=== PATIENT | male | born 1940 | race Caucasian/White ===

== ENCOUNTER → 2016-07-13 | Outpatient (CLI) | payer OTHER ==
[~2016-07-13] MED LIST: ASPCH81X PO; BUPRTAB51 PO; CARB1CAP11 PO; CHOL20009 PO; MULT-506 PO; OLAN10TA11 PO
[2016-07-13 12:53] LABS: BASO % 0.2 %; BASO ABS # 0.01 K/uL (0-0.2); COMPLETE YES; HEMATOCRIT 45.2 % (42-52); IG% 0.4 %; LYMPH ABS # 1.41 K/uL (1.2-3.4); MEAN CORPUSCULAR HEMOGLOBIN 32.6 pg (25-34); MEAN CORPUSCULAR HGB CONC 34.7 g/dl (32-36); MEAN PLATELET VOLUME 10.5 fL (7.4-10.4); MONO % 9.7 %; NEUT % 61.7 %; PLATELET COUNT 177 K/uL (130-400); RED BLOOD COUNT 4.81 M/uL (4.7-6.1); WHITE BLOOD COUNT 5.03 K/uL (4.8-10.8)
[2016-07-13 13:00] LABS: ALT/SGPT 33 U/L (12-78); BLOOD UREA NITROGEN 17 mg/dl (7-18); BUN/CREATININE RATIO 16.7 (10-20); CALCIUM 8.7 mg/dl (8.5-10.1); CARBON DIOXIDE 26 mmol/L (21-32); CHLORIDE 109 mmol/L (98-107); CHOLESTEROL 225 mg/dl (0-200); GLUCOSE 94 mg/dl (70-99); GLUCOSE,FASTING 94 mg/dl (70-99); POTASSIUM 3.8 mmol/L (3.5-5.1); SODIUM 142 mmol/L (136-145); TRIGLYCERIDES 141 mg/dl (0-150); VERY LOW DENSITY LIPOPROT CALC 28 mg/dl
[2016-07-13 13:05] LABS: AST/SGOT 15 U/L (15-37); CHOLESTEROL/HDL RATIO 4.4; HDL CHOLESTEROL 51 mg/dl; LDL CHOLESTEROL CALCULATED 146 mg/dl; PROSTATE SPECIFIC ANTIGEN 0.949 ng/ml (0.000-4.000)
[2016-07-13 13:57] LABS: ESTIMATED AVERAGE GLUCOSE 105 mg/dl; HA1C FLAG Normal (Normal)
--- NOTE | 2016-09-21 09:51 | CODING QUERY MEDICAL NECESSITY ---
CQSUPPORTING DIAGNOSIS NEEDED A supporting diagnosis is required for the test/procedure performed on this patient in order for us to be reimbursed by the patient's insurance. Please provide a supporting diagnosis for the following test/procedure listed below next to the test name along with your signature. *If there is no additional diagnosis for this patient that would support the following test/procedure please document that below next to the test/procedure. Test(s)/Procedure(s) that require a supporting diagnosis: DOS 07/13/16 GLYCATED HEMOGLOBIN TEST Provider Signature: Date: Thank you Susan [facility] Information Management Once completed, please kindly fax back to [phone] For questions please call [phone]
== END | disposition home or self-care (01) ==
LOC: C.LABMFLN 10:24
PROVIDERS: ATTEND Family Medicine
DX: F31.10 Bipolar disorder, current episode manic without psychotic features, unspecified (principal); E78.5 Hyperlipidemia, unspecified; Z12.5 Encounter for screening for malignant neoplasm of prostate; R73.03 Prediabetes

== ENCOUNTER → 2016-08-23 | Outpatient (CLI) | payer OTHER | END | disposition home or self-care (01) | LOC: C.PATHSPEC 13:02 | PROVIDERS: ATTEND Family Medicine | DX: L98.9 Disorder of the skin and subcutaneous tissue, unspecified (principal) ==

== ENCOUNTER → 2016-11-06 | Outpatient (CLI) | payer OTHER ==
[2016-11-06 15:22] LABS: CHOLESTEROL/HDL RATIO 3.1
== END | disposition home or self-care (01) ==
LOC: C.LABMFLN 10:39
PROVIDERS: ATTEND Family Medicine
DX: E78.5 Hyperlipidemia, unspecified (principal); E55.9 Vitamin D deficiency, unspecified

== ENCOUNTER 2019-01-03 06:45 | Inpatient (IN) ==
[2019-01-03] MEDS ORDERED: MIDAZOLAM HCL 1 MG/ML 2ML VIAL ONE (07:14)
[2019-01-03] MEDS ORDERED: NITROGLYCERIN/D5W 100MCG/ML 20ML SYR ONE (07:14)
[2019-01-03] MEDS ORDERED: NiCARDipine HCL INJ 2.5 MG/ML 10 ML AMP ONE (07:14)
[2019-01-03] MEDS ORDERED: HEPARIN (PORCINE) 1000 UNIT/ML 10 ML (CATH LAB USE ONLY) ONE ×2 (07:14→08:30)
[2019-01-03] MEDS ORDERED: fentaNYL citrate 100 MCG/2 ML VIAL ONE (07:14)
[2019-01-03] MEDS ORDERED: ASPIRIN 81 MG CHEW ONE (07:31)
--- NOTE | 2019-01-03 07:42 | History & Physical Bridge Note ---
Date of Service January 03, 2019 History & Physical Bridge Note I have examined the patient, reviewed the History & Physical and in the interval since the performance of the History & Physical I have noted the following changes of clinical significance: no changes noted
--- NOTE | 2019-01-03 07:42 | Pre Anesthesia Assessment ---
Date of Service January 03, 2019 Pre Sedation Assessment Vital Signs Temp Pulse Resp BP Pulse Ox 01/03/19 06:56 36.5 C 59 L 17 179/88 H 96 Cardiovascular + regular rate Respiratory normal respiratory effort, lungs clear to auscultation Pre-Sedation Airway Assessment Smoking Status: Never smoker Hx Sleep Apnea: No Short, Thick Neck: No Thyromental Distance: > or= 3.5 Finger Breadths Oral Cavity: + WNL Mallampati Class: III ASA: ASA3 NPO Status Date of Last Intake of Fluids: 01/02/19 Time of Last Intake of Fluids: 19:00 Date of Last Intake of Solid Food: 01/02/19 Time of Last Intake of Solid Foods: 19:00 Procedure Planning Contraindications for Sedation: none Current Medications Reviewed: Yes Notes The planned sedation has been discussed with the patient. Informed Consent was obtained. I have identified the patient, determined the appropriateness of sedation and have assessed the patient immediately prior to the procedure. All medicine(s) and interventions are by my order.
--- NOTE | 2019-01-03 08:31 | Cardiac Catheterization ---
[facility] Data: Bisque Placer Cardiac Status Clinical evaluation leading to the procedure CAD Presenation: No Sxs, No angina and Stable angina Anginal Classification: CCS III (dyspnea as anginal equivalent) Heart Failure: No Cardiogenic Shock within 24 Hours: No Cardiac Arrest within 24 Hours: No Imaging Studies Past 6 Months: No Standard Exercise Test: Yes - Negative Stress Echocardiogram: Yes - Positive and Risk/Extent of Ischemia (Intermediate) Stress Testing w/SPECT MPI: No Cardiac CTA: No Coronary Anatomy Dominant: Left Left Main (% Stenosis): Normal LAD (% Stenosis): Proximal (Diffuse moderate narrowing approx 50%) and Mid (98%) D1 (% Stenosis): Normal Circumflex (% Stenosis): Mid (20-30%) and Distal (sequential 30% stenoses) OM1 (% Stenosis): Normal OM2 (% Stenosis): Normal L PL1 (% Stenosis): Normal L PL2 (% Stenosis): Normal L PDA (% Stenosis): Normal RCA (% Stenosis): Normal Left Ventricular Angiography EF (%): n/a Diagnostic Physicians Name: Kemar Eddy MD Status: Elective Closure Device Percutaneous Entry Location: Radial Recommendations: PCI without planned CABG Cardiac Cath Procedure Full Procedure Date January 03, 2019 Pre-Procedure Diagnosis Pre-Procedure Diagnosis: Positive Stress Test AUC Score AUC Score: 8 Post-Procedure Diagnosis Post-Procedure Diagnosis: Severe CAD and Normal Intracardiac Pressures Procedure(s) Performed Procedure(s) Performed: Coronary Angiography and Left Heart Cath Car Pre Cooler Kemar Eddy MD Wigs Salesperson(s) [place] [place] Estimated Blood Loss Estimated Blood Loss: < 20 ml Medication(s) Medication(s): Fentanyl, Heparin, Lidocaine 1%, Nicardipine and Versed Summary of Findings Coronary angiography: 1. Left main coronary artery: Left main coronary artery is large caliber and long in duration. No significant CAD within the LMCA. 2. Left anterior descending: The LAD originates as a large caliber vessel but in the proximal portion becomes diffusely narrowed by approximately 50% on visual inspection. Mid LAD approximately 98% stenosis. MERLE 3 flow. Small D1. 3. Circumflex: The circumflex is large and dominant. Mid circumflex 20-30%. Distal circumflex sequential 30% stenotic lesions. Circumflex gives rise to high OM1, without significant CAD. Medium caliber OM 2 without significant CAD. Large OM3/PL branch. Small PL 2. PDA without significant CAD. 4. Right coronary artery: The RCA is small nondominant. No significant CAD within the RCA. Left heart catheterization: 1. Left ventriculography was not performed. 2. No significant aortic stenosis. Peak to peak gradient across aortic valve was approximately 0mmHg. 3. Normal LVEDP; 12mmHg. Sedation start time: 7:49 a.m. Sedation end time: 8:11 a.m. Impression: 1. Severe CAD involving mid LAD. 2. Suspected at least moderate disease involving proximal LAD with smooth narrowing diffusely. 3. Otherwise, mild nonobstructive CAD involving dominant circumflex. 4. No aortic stenosis. 5. Normal LVEDP. Plan: 1. Dr. Blancas of interventional Cardiology reviewed images and plans to further investigate proximal LAD (IVUS) with potential PCI of mid LAD. 2. Optimize medical therapy. Hemodynamics Rest Ao:: 148/60 Final Ao: 152/64 LV: 151/0/12 Recommendations Recommendations: PCI without planned CABG Specimens Specimens: None Radiation Exposure (mGy) 777 mGy. FLuoro time 3.3 min. Contrast (mls) 90 ml Procedural Complication(s) None Disposition remains in microbiology lab manager for PCI
--- NOTE | 2019-01-03 08:59 | Post Anesthesia Assessment ---
Date of Service January 03, 2019 Post Sedation Assessment Vital Signs Temp Pulse Resp BP Pulse Ox 01/03/19 06:56 36.5 C 59 L 17 179/88 H 96 Recovery Score Activity: Moves 4 extremities Respiration: Deep Breath/Cough Circulation: +/-20% PreAnes Value Consciousness: Fully Awake Oxygen Saturation: O2 needed for >90% Discharge Sedation Level of Care: Fast Track Phase II Post Sedation Plan On clinical assessment, the patient appears to have tolerated the sedation without complications. Patient is recovering as anticipated. Patient will continue to be monitored by nursing and may be discharged when sedation discharge criteria are met per below protocol. Upon Completions of procedure and additional 15 minutes continue every 5 minute vital signs and the P.A.R. score; then discharge to a Phase I or Fast Track to Phase II per the following guidelines: * Discharge Patient to appropriate Phase II area if PAR is 8 or greater or return to pre- procedure baseline. The post - procedure orders will be as directed. * If PAR score is less than 8 or not return to pre-procedure baseline then patient will follow Phase I monitoring till PAR is reached for Phase II. The Phase I may be done in procedure room or may call to secure a Phase I area. * If naloxone or flumazenil are used for reversal, hold in Phase I for continued monitoring from when last reversal dose was given for a minimum of 60 minutes or longer pending the nurse and/or physician discretion of patient condition before discharge to Phase II. Please call the Sedation Physician to re-evaluate and complete post-note for discharge to Phase II area. Do NOT discharge from procedure sedation or Phase 1 until post- sedation evaluation note is complete by procedure /sedation MD Sedation Discharge Instructions to be given to the patient at discharge to home.
[2019-01-03] MEDS ORDERED: ACETAMINOPHEN 325 MG TAB PO PRN (09:04)
[2019-01-03] MEDS ORDERED: ONDANSETRON INJ 2 MG/ML 2 ML VIAL IV PRN (09:04)
--- NOTE | 2019-01-03 09:04 | Cardiac Catheterization ---
[facility] Data: Geriatric Case Manager Cardiac Status Clinical evaluation leading to the procedure CAD Presenation: Positive Stress Test Anginal Classification: CCS III Heart Failure: No Cardiogenic Shock within 24 Hours: No Cardiac Arrest within 24 Hours: No Imaging Studies Past 6 Months: Yes Stress Studies Past 6 Months: Yes Stress Echocardiogram: Yes - Positive and Risk/Extent of Ischemia Diagnostic Physicians Name: Polo Blancas MD Status: Elective Closure Device Percutaneous Entry Location: Radial Closure Device: Radial Band Recommendations: PCI without planned CABG PCI Indication: + Stress Test Lesion Segment Name: mid Lad Culprit Artery: Yes Stenosis Prior to Rx (%): 90 Chronic Total Occlusion: No IVUS: No FFR: No Pre-Procedure MERLE Flow: 3 Previously Treated Lesion: No Lesion Complexity: Non-High/Non-C Lesion Length (mm): 20 Thrombus Present: No Bifurcation Lesion: Yes Guidewire Across Lesion: Stenosis Post-Procedure (%): 0 Post-Procedure MERLE Flow: 3 Devices(s) Deployed: Yes Yes Intraprocedure Events Significant Disection: No Perforation: No Cardiac Cath Procedure Full Procedure Date January 03, 2019 Pre-Procedure Diagnosis Pre-Procedure Diagnosis: Positive Stress Test AUC Score AUC Score: 8 Post-Procedure Diagnosis Post-Procedure Diagnosis: Severe CAD and Successful PCI Procedure(s) Performed Procedure(s) Performed: Coronary Angiography and Drug Eluting Stent Analytical Lab Technician Polo Blancas MD Event Mgr(s) [place]oo [place] Estimated Blood Loss Estimated Blood Loss: < 20 ml Medication(s) Medication(s): Clopidogrel, Fentanyl, Heparin, Nicardipine, Nitroglycerin and Versed Summary of Findings Indication: Positive stress test Access: 6 Fr right radial artery Catheters: EBU 3.75 guide Findings: For full details of patient's coronary angiography please cath report dictated by Dr. Eddy. Briefly, patient found to have severe single vessel disease with a 90 % stenosis involving the mid LAD. Decision to proceed with PCI. -- PCI -- Antithrombotic therapy: Heparin, clopidogrel Procedure: Left main cannulated with EBU 3.75 guide Customs Entry Writer 50 wire passed across lesion into distal vessel IVUS used to assess extent of disease in proximal LAD, degree of calcification. Diffuse disease extending from mid segment back to first septal with mild calcification. Mid LAD lesion predilated with 2.5 compliant balloon Dilated lesion stented with 2.75 x 26 mm [place] drug-eluting stent Stent post-dilated with 3.0 noncompliant balloon IC vasodilators administered for spasm Post procedure MERLE 3 flow, stent well expanded with minimal residual stenosis and no apparent cardiac complications. Arterial Closure: TR band Summary: 1. Successful PCI of mid LAD with single drug-eluting stent (2.75 x 26 mm Melecio; postdilated with 3.0 NC). Recommendations: To PCU for continued monitoring Loaded with clopidogrel 600 mg in clinical laboratory medical director Continue dual-antiplatelet therapy for at least 6 months Continue statin, and ASCVD risk factor modification Consult cardiac Rehab Hemodynamics Rest Ao:: 137/56/88 Final Ao: 141/59/91 LV: -- Recommendations Recommendations: PCI without planned CABG Specimens Specimens: None Radiation Exposure (mGy) -- Contrast (mls) -- Fluids (cc crystalloids) Fluids (cc crystalloids): -- Drains Drains: None Anesthesia moderate Procedural Complication(s) None Disposition PCU
[2019-01-03] MEDS: CLOPIDOGREL BISULFATE 300 MG TAB ONE ×2 (09:28→09:31)
[2019-01-03] MEDS: SODIUM CHLORIDE 0.9% 500 ML IV SCH ×3 (09:37→20:07)
[2019-01-03] MEDS: CARBAMAZEPINE 200 MG TABCR PO SCH (20:24)
[2019-01-03] MEDS ORDERED: OLANZapine 10 MG TAB PO SCH (21:00)
[2019-01-04] MEDS: CARBAMAZEPINE 200 MG TABCR PO SCH (07:53)
[2019-01-04] MEDS ORDERED: BuPROPion XL 300 MG TABCR PO SCH (09:00)
[2019-01-04] MEDS ORDERED: OLANZapine 10 MG TAB PO SCH (09:00)
[2019-01-04] MEDS ORDERED: ASPIRIN 81 MG ECTAB PO SCH (09:00)
[2019-01-04] MEDS ORDERED: ATORVASTATIN 40 MG TAB PO SCH (09:00)
[2019-01-04] MEDS ORDERED: LISINOPRIL 5 MG TAB PO SCH (09:00)
[2019-01-04] MEDS ORDERED: CHOLECALCIFEROL 1,000 UNITS TAB PO SCH (09:00)
[2019-01-04] MEDS ORDERED: CLOPIDOGREL BISULFATE 75 MG TAB PO SCH (09:00)
[2019-01-04 09:01] LABS: Basophils # (auto) 0.02 K/uL (0-0.2); Basophils % (auto) 0.3 %; Eosinophils % (auto) 1.3 %; Hemoglobin 17.3 g/dL (14.0-18.0); Immature Granulocytes # (auto) 0.04 K/uL (0.00-0.02); Immature Granulocytes % (auto) 0.5 %; Lymphocytes # (auto) 1.53 K/uL (1.2-3.4); Lymphocytes % (auto) 20.1 %; Mean Corpuscular Hemoglobin 33.1 pg (25-34); Mean Corpuscular Hgb Conc 35.3 g/dL (32-36); Mean Corpuscular Volume 93.7 fL (80-100); Mean Platelet Volume 10.7 fL (7.4-10.4); Monocytes # (auto) 0.55 K/uL (0.11-0.59); Monocytes % (auto) 7.2 %; Neutrophils # (auto) 5.38 K/uL (1.4-6.5); Neutrophils % (auto) 70.6 %; Platelet Count 204 K/uL (130-400); RDW Coefficient of Variation 13.8 % (11.5-14.5); Red Blood Count 5.23 M/uL (4.7-6.1); White Blood Count 7.62 K/uL (4.8-10.8)
[2019-01-04 09:29] LABS: BUN Creatinine Ratio 10.6 (10-20); Creatinine Clr Calc Pharmacy 50.7 ml/min; Est GFR (African American) 62.6; Potassium 3.9 mmol/L (3.5-5.1)
--- NOTE | 2019-01-04 10:47 | Discharge Summary ---
Date of Service January 04, 2019 Admission HPI Per Admitting Provider Presented to cardiac catheterization lab as an outpatient for dyspnea with exertion and abnormal stress echo suggesting LAD ischemia. He underwent cardiac catheterization and was found to have severe mid LAD stenosis. He underwent PCI with a 2.75 x 26 mm tenisha JAIRO post dilated with a 3 mm noncompliant balloon. He was placed on dual anti-platelet therapy and admitted to observation following PCI. Principal Diagnosis 1. Coronary artery disease 2. s/p LAD stent placement 3. Hypertension 4. Abnormal stress echo Discharge Exam Gen.: No acute distress. Alert and oriented. HEENT: Anicteric sclera. Neck: No JVD. Cardiac: Regular. Normal S1-S2. No murmurs, rubs, or gallops. Pulmonary: Clear to auscultation bilaterally without wheezes, rales, or rhonchi. Abdomen: Soft, nontender, nondistended, with normoactive bowel sounds. No bruits noted. Extremities: Right radial cath site is clean, dry, and intact without erythema or discharge. 2+ right radial pulse. No edema or cyanosis. Psychiatric: Affect appears appropriate. Discharge Data Allergies Allergy/AdvReac Type Severity Reaction Status Date / Time No Known Allergies Allergy Unverified 01/02/19 14:26 Consultations 01/03/19 09:07 Consult Cardiac Rehabilitation Routine Procedures Performed Operation Date: 01/03/19 08:00 Actual Procedures p Drug Eluting Stent SGl Vessel - Duc Blancas MD s Cineradiography w/Routine Exam(Not Applicable) - Kemar Eddy MD s IVUS Coronary Single Vessel(Not Applicable) - Duc Blancas MD s Cath, Left with Cors and Vent(Not Applicable) - Kemar Eddy MD Ordered Studies 01/03/19 06:34 CL Cath Imgs for PACS use only Routine Hospital Course (1) CAD (coronary artery disease): Was found to have severe mid LAD CAD, which correlated with stress echo findings. He underwent PCI with a drug-eluting stent within his mid LAD, 2.75 x 26 mm tenisha. He tolerated the procedure well. He was able to ambulate in hallway without shortness of breath, chest pain, syncope, near-syncope, or palpitations. Continue aspirin 81 mg daily indefinitely. Continue Plavix for at least 6 months without interruption. Continue statin therapy. Not on a beta-gertrude due to resting bradycardia. (2) S/P coronary artery stent placement: Dual anti-platelet therapy recommended as noted above. (3) Hypertension: Blood pressure consistently mildly elevated throughout his hospital stay. Lisinopril 5 mg once daily initiated. Basic metabolic panel in 5-7 days. (4) Hyperlipidemia: Recommended high-intensity statin therapy in place of his home pravastatin. Atorvastatin 40 mg once daily started in place of pravastatin. New prescriptions discussed with him. Disposition: Follow-up in 1-2 weeks in the cardiology outpatient office. Stable for discharge. Total Time Total Time Spent Total Time Spent (In Minutes): 45 Total Time Includes: Examination of the Patient, Discharge Planning, Medication Reconciliation and Other (Discussing new medications and answering questions with patient and his .) Discharge Plan Discharge Items Patient Disposition: Home - Self-Care Reason For Visit: PCI Discharge Diagnosis: Coronary artery disease. Coronary artery stent placement. Discharge Goals: Improve disease control and Improve function Activity: Per 'Additional Instructions' section Non-emergency contact: Panel Machine Tender Call non-emergency contact if: you have any medication questions, your pain is worsening, you have a fever, your wound has increased redness and your wound has increased drainage Follow-up/Referrals: Clarke Mckeon MD [Primary Care Provider] - Diet: Heart Healthy Addtl Provider Instructions: ACTIVITY RECOMMENDATIONS: Excess manipulation of the wrist should be avoided for the next 24-48 hours. * No lifting over 2 pounds (approximately a 1/2 gallon of milk) with the utiliz ed arm for 24 hours. * No strenuous activity such as bowling or tennis for 3 days. * Keep the site of the procedure covered with a bandage for 24 hours. *You may shower the day after the procedure. Do not take a tub bath or submerge the puncture site in water for the next 3 days. *Do not operate any motorized equipment for 3 days. SPECIAL CARE INSTRUCTIONS: The site may be slightly bruised and sore following your procedure. Should any of the following occur, contact the Dr. who performed your procedure. 1. Redness/inflammation, swelling, chills, or fever, or colored drainage at procedure site within 3-7 days after your procedure. 2. Coldness, discoloration, ongoing numbness, severe pain, or swelling. Expect mild tingling of hand and tenderness at the puncture site for up to three days. If this persists beyond three days, or other symptoms develop, notify the Dr. who performed your procedure. BLEEDING: If the procedure site on your wrist begins to bleed, do not panic 1. Place 1 or 2 fingers firmly just slightly above the insertion site to stop the bleeding. You may be able to feel your pulse as you hold pressure. 2. Lift your finger after 5 minutes to see if the bleeding has stopped. 3. Once the bleeding has stopped, gently wipe the wrist area clean with a bandage. * If the bleeding from your wrist does not stop after 10 minutes, or if there is a large amount of bleeding or spurting, call 911 (do not drive yourself to the hospital). SKIN IRRITATION: * You may experience some redness and/or swelling in the area where radiation was administered. If any skin irritation occurs, please contact your family physician. FOLLOW UP VISIT: 1. Dr. Eddy's office will contact you this upcoming week for 1-2 week follow up appointment. 2. Keep all other scheduled appointments. Prescriptions: New atorvastatin 40 mg Tablet 40 mg PO QAM Qty: 30 RF: 5 clopidogrel 75 mg Tablet 75 mg PO QAM Qty: 30 RF: 5 aspirin [Ecotrin Low Strength] 81 mg Tablet,Delayed Release (Dr/Ec) 81 mg PO QAM Qty: 30 RF: 0 lisinopril [Zestril] 5 mg Tablet 5 mg PO QAM Qty: 30 RF: 5 Continued bupropion HCl 300 mg tablet extended release 24 hr 300 mg PO DAILY Qty: 90 RF: 3 carbamazepine 200 mg tablet extended release 12 hr 200 mg PO BID Qty: 180 RF: 3 mometasone 0.1 % cream 1 appln topical BID Qty: 50 RF: 3 olanzapine 10 mg tablet 10 mg PO DAILY Qty: 90 RF: 3 cholecalciferol (vitamin D3) 1,000 unit capsule 1,000 units PO DAILY Qty: 90 RF: 3 Discontinued pravastatin 40 mg tablet 40 mg PO DAILY Qty: 90 RF: 3 Stand-Alone Forms: [facility] Discharge Orders: Discharge Order (Routine); Ordered 01/04/19 Ordered By: Kemar Eddy Admission Data Admit Date/Time: 01/03/19 08:46 Attending Provider: Kemar Eddy Admit Provider: Kemar Eddy Primary Care Provider: Clarke Mckeon Service: Telemetry Other Interventions: Discharge Summary Assessment (RN) Last Done: 01/04/19 10:52 DC Date/Time DO NOT enter until pt leaves facility: 01/04/19 11:10
== END 2019-01-04 11:10 | disposition home or self-care (01) | DRG 247 ==
LOC: CC 06:45 → 2S 08:46